=== PATIENT | female | born 1990 | race Caucasian/White ===

== ENCOUNTER 2016-11-06 21:05 | Emergency (ER) | payer BC ==
[~2016-11-06] VITALS: Ht 167.6 cm; Wt 68.0 kg
--- NOTE | 2016-11-06 21:20 | NUR ---
PATIENT WALKED INTO ER C/O RIGHT ANTECUBITAL SPACE ABSCESS X 3WEEKS. PATIENT STATES "I SHOT UP HEROIN ON THIS AREA." PATIENT HERE FOR WORSENING PAIN AND SWELLING, PT ACCOMPANIED BY HER FATHER... MD AT BEDSIDE...
[2016-11-06] MEDS ORDERED: SULFAMETH/TRIMETH 800/160 MG TABLET PO ONE (23:00)
[2016-11-06] MEDS ORDERED: SULFAMETH/TRIMETH 800/160 MG TABLET ONE (23:08)
--- NOTE | 2016-11-06 23:08 | NUR ---
Patient discharged to home in stable conditon. Written and verbal after care instructions given. Patient verbalizes understanding of instructions. Pt walked out of ER unassisted with belongings at side...
[2016-11-06 23:13] VITALS: BP 110/64
== END 2016-11-06 23:16 | disposition home or self-care (01) ==
LOC: ER 21:07
DX: I80.9 Phlebitis and thrombophlebitis of unspecified site (principal); F12.10 Cannabis abuse, uncomplicated; F11.10 Opioid abuse, uncomplicated; F17.200 Nicotine dependence, unspecified, uncomplicated
CPT/HCPCS: 73080; A4663

== ENCOUNTER → 2016-11-12 | Emergency (ER) | payer BC ==
[~2016-11-12] MED LIST: BACTRIM; CLON0.1T PO
== END | disposition left against medical advice (07) ==
LOC: ER 23:29
DX: Z53.21 Procedure and treatment not carried out due to patient leaving prior to being seen by health care provider (principal)

== ENCOUNTER 2016-11-14 22:55 | Emergency (ER) | payer BC ==
[~2016-11-14] VITALS: Ht 167.6 cm; Wt 68.0 kg
[2016-11-14] MEDS ORDERED: CLON0.1T PO (23:11)
[2016-11-14] MEDS ORDERED: BACTRIM (23:11)
[2016-11-14] MEDS ORDERED: LIDOCAINE HCL 2% 20 ML VIAL TP ONE (23:30)
[2016-11-14] MEDS ORDERED: SODIUM BICARBONATE 4.2 % (NEUT) 5 ML VIAL TP ONE (23:30)
[2016-11-14] MEDS ORDERED: LET TOPICAL SOLUTION 8 ML UDC TOP ONE (23:30)
[2016-11-14] MEDS ORDERED: LET TOPICAL SOLUTION 8 ML UDC ONE (23:37)
--- NOTE | 2016-11-15 00:10 | NUR ---
DR SCHULER INTO DO I/D ON RIGHT AC
--- NOTE | 2016-11-15 00:15 | NUR ---
APPLIED DRESSING ON RIGHT AC ORDERED BY DR SCHULER
--- NOTE | 2016-11-15 00:16 | NUR ---
Patient discharged to home in stable conditon. Written and verbal after care instructions given. Patient verbalizes understanding of instructions. WALKED OUT OF ER ER WITH STEADY GAIT WITH NO DISTRESS NOTED
[2016-11-15 00:18] VITALS: BP 115/60
== END 2016-11-15 00:18 | disposition home or self-care (01) ==
LOC: ER 23:00
DX: S40.021A Contusion of right upper arm, initial encounter (principal); L02.413 Cutaneous abscess of right upper limb; F17.200 Nicotine dependence, unspecified, uncomplicated; F19.10 Other psychoactive substance abuse, uncomplicated; X58.XXXA Exposure to other specified factors, initial encounter; Y93.89 Activity, other specified; Y92.9 Unspecified place or not applicable; Y99.9 Unspecified external cause status
CPT/HCPCS: 10060; 99283; A4663; J3490